=== PATIENT | female | born 1975 | race Caucasian/White ===

== ENCOUNTER 2018-02-22 16:50 | Observation (INO) | payer OTHER ==
[~2018-02-22] VITALS: Ht 160 cm; Wt 94.5 kg
--- NOTE | ~2018-02-22 | EC ---
PATIENT:BHUPENDRA MURPHY DATE OF SERVICE: 02/22/18 SEX: F MEDICAL RECORD: [id number] DATE OF : 71 LOCATION:D. D.212 AGE OF PATIENT: 42 ADMISSION DATE: 02/22/18 REFERRING PHYSICIAN: INTERPRETING PHYSICIAN: RUBI GALLOWAY MD ECHOCARDIOGRAM REPORT ECHO CHARGES 4 ECHO COMPLETE Date: 02/23 CLINICAL DIAGNOSIS: CHEST PAIN ECHOCARDIOGRAPHIC MEASUREMENTS (adult normal given) AC root (d.<3.7cm) 3.3 cm LV Septum d (<1.2 cm> 1.4 cm Valve Excursion 1.7 cm LV Septum (systole) 1.5 cm Left Atria (s.<4.0cm> 3.8 cm LVPW d(<1.2cm) 1.5 cm RV (d.<2.3cm) 2.9 cm LVPW (sytole) 1.8 cm LV diastole(<5.6CM) 3.9 cm MV E-F(>70mm/sec) cm LV systole 2.4 cm LVOT Diameter 2.1 cm MV exc.(>10mm) 1.5 cm Est.ejection fraction (50-75%) % DOPPLER: LVIT cm/sec A 82.0 cm/sec E 67.0 cm/sec LA cm/sec RVSP 24 mmHg LVOT 86 cm/sec AOP1/2T m/s Asc. Ao 147 cm/sec RVOT 105 cm/sec RA cm/sec PA 147 cm/sec AV Gradient Peak 8.60 mmHg AV Mean 3.98 mmHg AV Area 2.1 cm MV Gradient Peak 3.24 mmHg MV Mean 1.41 mmHg MV Area cm COMMENTS: Medical Director/Head Team Physician: 2 ABDI GAY Qa Tech: 4 Dr. Galloway TAPE# PACS Pericardial Effusion N DATE OF SERVICE: PROCEDURE: Transthoracic echocardiogram. FINDINGS: 1. Ejection fraction of the left ventricle is 65%. 2. There is no regional wall motion abnormalities. 3. Left atrium is normal size, normal function. 4. Aortic valve is normal. 5. The mitral valve is normal structure and function. ECHOCARDIOGRAM REPORT [id number] BHUPENDRA MURPHY 6. Tricuspid valve is normal structure and function. RVSP is normal. 7. The right ventricle is normal. 8. The right atrium is normal. 9. The pulmonic valve is normal. 10. There is no pericardial effusion. CONCLUSIONS: In conclusion, this is a normal echocardiogram for the patient's stated age. TRANSINT:[id number] Voice Confirmation ID: [id number] DOCUMENT ID: [id number] RUBI GALLOWAY MD at 0942 CC: [id number] DICTATION DATE: 02/24/18 0713 NEEDLEWORKER: 02/24/18 0833 DIS IN 02/23/18 [address] [place] [address]
--- NOTE | ~2018-02-22 | HEMODYNAMI ---
PATIENT:BHUPENDRA MURPHY MEDICAL RECORD: [id number] : 71 [id number] ADMISSION DATE: 02/22/18 Generatedon:02/23/20189:40 Patient name: BHUPENDRA MURPHY Patient #: [id number] SSN: [id number] : 1975 Date of study: 02/23/2018 Page: Of Hemodynamic Procedure Report Patient Data Patient Demographics Procedure consent was obtained First Name: BHUPENDRA Gender: Female Last Name: KATHERINE : 1975 Patient #: [id number] Age: 42 year(s) Race: SSN: [id number] Additional ID: [id number] Contact details [address]: [address] [place] [address] State: [place] City: [place] Zip code: [address] Past Medical History Allergies Allergen Reaction Date Comments Reported Other allergy 02/23/2018 Codeine Admission Admission Data Admission Date: 02/22/2018 Admission Time: 17:53 Arrival Date: 02/23/2018 Arrival Time: 17:53 Admit Source: Other Insurance Payor: Private Room #: [id number] health insurance Lab Results Lab Result Date: 02/23/2018 Lab Result Time: 0:00 Biochemistry Name Units Result Min Max BUN mg/dl 21 --(----)-* 7 18 Creatinine mg/dl 1.2 --(---*)-- 0.6 1.3 CBC Name Units Result Min Max Hemoglobin g/dl 12.8 -*(----)-- 13.5 17.5 Procedure Procedure Types Cath Procedure Diagnostic Procedure C C w/Coronaries Procedure Description Procedure Date Procedure Date: 02/23/2018 Procedure Start Time: 9:15 Procedure End Time: 9:39 Procedure Staff Name Function Vadim Hays MD Performing Physician Alexa Ruiz RT Monitor Rafal Trejo RN Nurse Mitzy Crowley RT Scrub Procedure Data Cath Procedure Fluoroscopy Diagnostic fluoroscopy Total fluoroscopy Time: 1.2 time: 1.2 min min Diagnostic fluoroscopy Total fluoroscopy dose: 261 dose: 261 mGy mGy Contrast Material Contrast Material Type Amount (ml) Isovue 300 261 Entry Location Entry Primary Successful Side Size Upsize Upsize Entry Closure Succes sful Closure Location (Fr) 1 (Fr) 2 (Fr) Remarks Device Remarks Femoral Right 5 Fr Exoseal artery Estimated blood loss: 5 ml Procedure Complications No complications Procedure Medications Medication Administration Route Dosage 0.9% NaCl I.V. 100 ml/hr Oxygen etCO2 Nasal cannula 2 l/min Heparin Flush Bag added to field 2 bags (1000units/500ml NS) Lidocaine 2% added to field 20 Versed I.V. 2 mg Fentanyl I.V. 50 mcg Versed I.V. 1 mg Hemodynamics Rest HGB: 12.8 (g/dl) Heart Rate: 85 (bpm) Pressure Samples Time Site Value (mmHg) Purpose Heart Use Rate(bpm) 9:34 LV 151/-32,5 EDP 100 9:35 AO 121/77(98) Pullback 111 Gradients Valve Time Site Site 2 Mean SEP/DFP Peak To Heart Use 1 (mmHg) (sec/min) Peak Rate (mmHg) (bpm) Aortic 9:35 LV AO 111 121/77(98) Snapshots Pre Cath Intra NCS Post Cath Vital Signs Time Heart Resp SPO2 etCO2 NIBP (mmHg) Rhythm Pain Sedation Rate (ipm) (%) (mmHg) Status Level (bpm) 9:01:46 88 26 97 0 134/90(109) NSR 0 (11) 10(A) , No pain 9:06:29 98 19 100 13.6 133/88(113) NSR 0 (11) 10(A) , No pain 9:11:13 94 18 100 30.9 130/86(110) NSR 0 (11) 10(A) , No pain 9:16:00 110 17 99 37 130/82(99) NSR 0 (11) 10(A) , No pain 9:20:45 107 19 99 38.5 126/85(97) NSR 0 (11) 10(A) , No pain 9:25:27 99 20 99 27.9 124/85(101) NSR 0 (11) 10(A) , No pain 9:30:10 109 20 100 34.7 131/88(99) NSR 0 (11) 10(A) , No pain 9:34:55 110 18 100 35.5 125/89(104) NSR 0 (11) 10(A) , No pain 9:39:37 86 20 98 33.2 124/89(106) NSR 0 (11) 10(A) , No pain Medications Time Medication Route Dose Verified Delivered Reason Notes Effe ctiveness by by 9:05:48 0.9% NaCl I.V. 100 Rafal Rafal Per ml/hr Lorigan Lorigan physician RN RN 9:06:08 Oxygen etCO2 2 Rafal Rafal Per Nasal l/min Lorigan Lorigan physician cannula RN RN 9:06:20 Heparin Flush added 2 Rafal Rafal used for Bag to bags Lorigan Lorigan procedure (1000units/500ml field RN RN NS) 9:06:34 Lidocaine 2% added 20ml Rafal Rafal for local to vial Lorigan Lorigan anesthetic field RN RN 9:13:20 Versed I.V. 2 mg Rafal Rafal for Lorigan Lorigan sedation RN RN 9:13:30 Fentanyl I.V. 50 Rafal Rafal for mcg Lorigan Lorigan sedation RN RN 9:15:04 Versed I.V. 1 mg Rafal Rafal for Lorigan Lorigan sedation RN applications engineer manufacturing Log Time Note 8:33:36 Diagnostic Cath status Elective 8:33:38 Alexa Ruiz RT(R) sent for patient. Start room use. 8:33:39 Time tracking: Regular hours (M-F 7:00 - 5:00) 8:33:45 Plan of Care:Hemodynamics will remain stable., Cardiac rhythm will remain stable., Comfort level will be maintained., Respiratory function will remain adequate., Patient/ family verbilizes understanding of procedure., Procedure tolerated without complication., Recovers from procedure without complications.. 8:45:36 Informed consent obtained and on chart 8:45:42 Admit Source: Other 8:45:44 Arrival Date: 02/23/2018 5:53:00 PM 8:45:51 Insurance Payor : Private health insurance 8:47:19 Lab Result : Creatinine 1.2 mg/dl 8:47:19 Lab Result : BUN 21 mg/dl 8:47:19 Lab Result : Hemoglobin 12.8 g/dl 8:49:35 Patient received from Med II to CCL 2 Alert and oriented. Tansferred to table in Supine position. 8:49:36 Warm blankets applied, and giselle hugger turned on for patient comfort. 8:49:37 Correct patient and procedure confirmed by team. 8:49:38 ECG and BP/O2 sat monitors applied to patient. 9:00:53 Vital chart was started 9:00:56 Baseline sample Acquired. 9:01:00 Rhythm: sinus rhythm 9:01:02 Full Disclosure recording started 9:01:09 H&P Date Dictated: 02/22/2018 Within 30 days and on chart.. 9:01:11 Pre-procedure instructions explained to patient. 9:01:13 Family in waiting room. 9:01:15 Patient NPO since Midnight. 9:01:30 Patient allergic to Other allergyCodeine 9:01:32 Was the patient premedicated? Yes 9:01:33 Is patient on blood thinner?Yes 9:01:36 ACC The patient was administered the following blood thiners within the last 24 hours: ACCPlavix 9:01:38 Patient diabetic? No. 9:01:42 Snore? Yes 9:01:44 Sleep apnea? No 9:01:48 Dentures? No ? 9:01:53 Patient pain scale 0/10 ?. 9:01:59 IV patent on arrival in left forearm with 0.9% NaCl at O. 9:02:03 Lab results completed and on chart. 9:02:07 Right Radial & Right Groin area was prepped with chlora-prep and draped in sterile fashion 9:02:08 Alarms reviewed by R. N. 9:02:09 Sharps counted by scrub and verified by R.N. 9:02:11 Physician paged 9:05:48 0.9% NaCl 100 ml/hr I.V. was administered by Rafal Trejo RN; Per physician; 9:06:08 Oxygen 2 l/min etCO2 Nasal cannula was administered by Rafal Trejo RN; Per physician; 9:06:20 Heparin Flush Bag (1000units/500ml NS) 2 bags added to field was administered by Rafal Trejo RN; used for procedure; 9:06:34 Lidocaine 2% 20ml vial added to field was administered by Rafal Trejo RN; for local anesthetic; 9:07:27 Final Timeout: patient, procedure, and site verified with staff and physician. All members of the team are in agreement. 9:07:28 --------ALL STOP TIME OUT------ 9:07:33 Right Radial & Right Groin site verified by team. 9:08:00 Physical assessment completed. ASA score P 2 - A patient with mild systemic disease as per Vadim Hays MD. 9:08:06 Sedation plan: IV Moderate Sedation Medication:Versed, Fentanyl 9:08:32 Use device set Radial Dx or PCI 9:08:33 ACIST Syringe (51045) opened to sterile field. 9:08:33 Medline Cath Pack ([id number]) opened to sterile field. 9:08:34 Bag Decanter (2002S) opened to sterile field. 9:08:34 DIAGNOSTIC WIRE .035 260cm J wire (680472) opened to sterile field. 9:08:35 ACIST Hand Control (72557) opened to sterile field. 9:08:35 ACIST Manifold (74542) opened to sterile field. 9:08:36 Tegaderm 4 x 4 (1626W) opened to sterile field. 9:08:37 MBrace Wrist Support ([id number]) opened to sterile field. 9:08:38 SHEATH 6Fr Prelude Radial ([id number]) opened to sterile field. 9:11:01 Zero performed for pressure channel P1 9:13:20 Versed 2 mg I.V. was administered by Rafal Trejo RN; for sedation; 9:13:30 Fentanyl 50 mcg I.V. was administered by Rafal Trejo RN; for sedation; 9:15:04 Versed 1 mg I.V. was administered by Rafal Trejo RN; for sedation; 9:15:57 Local anesthetic to right radial artery with Lidocaine 2% by Vadim Hays MD.INITIAL ACCESS ONLY 9:24:24 unable to gain radial access; attempting femoral access 9:24:34 Local anesthetic to right femoral artery with Lidocaine 2% by Vadim Hays MD.ADDITIONAL ACCESS 9:24:53 SHEATH 5Fr Prelude ([id number]) opened to sterile field. 9:24:54 MICROPUNCTURE 4FR Cuponomia (R23681) opened to sterile field. 9:25:55 Access obtained with 4Fr micropunture. 9:26:00 A 5 Fr sheath was inserted into the Right Femoral artery 9:26:31 DIAGNOSTIC Multipack 5Fr catheter set (GX8618) opened to sterile field. 9:27:14 5 Fr jl 4 guide catheter was inserted over the wire 9:30:35 LCA angiography performed. 9:30:37 Injector settings: Ml/sec: 3, Volume: 6, 9:31:17 Catheter removed. 9:31:30 5 Fr 3drc guide catheter was inserted over the wire 9:32:48 RCA angiography performed. 9:32:51 Injector settings: Ml/sec: 3, Volume: 6, 9:33:03 Catheter removed. 9:33:12 5 Fr pigtail guide catheter was inserted over the wire 9:34:54 LV hemodynamics recorded. 9:34:56 LV gram done using NOEL 9:34:59 Injector settings: Ml/sec: 8, Volume: 12, 9:35:25 EF : 60 % 9:35:27 Catheter removed. 9:35:43 EXOSEAL 5Fr (EX500) opened to sterile field. 9:36:01 Sheath removed intact; hemostasis achieved with Exoseal to the Right Femoral artery. 9:36:04 Procedure ended.(Physican Out) 9:37:02 Fluoroscopy time 01.20 minutes. 9:37:33 Fluoroscopy dose: 261 mGy 9:37:33 Flurop Dose total: 261 9:37:41 Contrast amount:Isovue 300 261ml. 9:37:43 Sharps counted by scrub and verified by R.N. 9:37:46 Insertion/operative site no bleeding no hematoma. 9:38:17 Post-op/insertion site Right Femoral artery dressed using a 4 x 4 and Tegaderm. 9:38:21 Post right femoral artery:stable 9:38:38 Post Procedure Pulses reassessed and unchanged 9:38:41 Post procedure rhythm: unchanged. 9:38:44 Estimated blood loss: 5 ml 9:38:45 Post procedure instruction explained to patient.Patient verbalizes understanding. 9:38:46 Patient needs reinforcement of post procedure teaching. 9:38:56 Procedure and supply charges have been captured, reviewed, submitted and are correct. 9:39:01 Procedure Complication : No complications 9:39:03 Vital chart was stopped 9:39:05 See physician's report for complete and final results. 9:39:13 Report given to Med II. 9:39:16 Patient transfered to Med II with Stretcher. 9:39:18 Procedure ended. 9:39:18 Full Disclosure recording stopped 9:39:22 End room use (Document Last) Device Usage Item Name Manufacture Quantity Catalog Number Hospital Part Current M inimal Lot# / Charge Number Stock Stock Serial# Code ACIST Syringe Acist 1 89864 543090 002106 862218 2 0 (44263) [employer] Medline Cath Cardinal 1 [id number] 930673 22155 018681 5 Pack Health ([id number]) Bag Decanter Microtek 1 2001S 971353 12352 708566 5 (2001S) Medical Inc. DIAGNOSTIC WIRE [facility] 1 546972 057615 668767 463448 3 0 .035 260cm J wire (268909) ACIST Hand Acist 1 53120 766019 716196 192624 5 Control (80362) [employer] Inc ACIST Manifold Acist 1 87996 232467 356354 811697 5 (81483) Medical Systems Inc Tegaderm 4 x 4 3M 1 1626W 785630 743770 854558 5 (1626W) MBrace Wrist Advanced 1 140-0250-00 088639 18004 849088 5 Support Vascular ([id number]) Dynamics SHEATH 6Fr Merit 1 [id number] 108064 808027 239445 5 Prelude Radial Medical ([id number]) SHEATH 5Fr Merit 1 [id number] 208578 929823 921845 5 Prelude Medical ([id number]) MICROPUNCTURE Cook Medical 1 H07587 978956 809019 215106 5 4FR Cook (Y47995) DIAGNOSTIC Cardinal 1 MS2535 754370 36594 350783 3 0 Multipack 5Fr Health catheter set (XY8932) EXOSEAL 5Fr Cardinal 1 EX500 481836 342877 631349 1 0 (EX500) Health Signature Audit [place] Stage Time Signature Unsigned Intra-Procedure 02/23/2018 Alexa Ruiz 9:40:01 AM RT(R) Signatures Monitor : Alexa Ruiz RT Signature : Date : Time : [address] [place] [address]
[2018-02-22 17:18] LABS: BASOPHILS 0.3 % (0-2); EOSINOPHILS 1.7 % (0-7); HEMATOCRIT 37.7 % (36.0-48.0); HEMOGLOBIN 12.8 g/dL (12-16); IMMATURE GRANULOCYTES 0.3 % (0-5); LYMPHOCYTES 32.4 % (15-50); MCV 85.5 fL (80.0-100.0); MEAN PLATELET VOLUME 10.3 fL (7.4-10.4); MONOCYTES 7.5 % (2-11); NEUTROPHILS 57.8 % (40-80); PLATELET COUNT 402 10x3/uL (130-400); RBC 4.41 10x6/uL (4.00-5.40); RDW 12.7 % (11.5-14.5); WBC 11.6 10x3/uL (4.8-10.8)
[2018-02-22 17:34] LABS: ALBUMIN 3.4 g/dL (3.4-5.0); ALKALINE PHOSPHATASE 43 U/L (46-116); ALT (SGPT) 20 U/L (10-68); BILIRUBIN - TOTAL 0.36 mg/dL (0.2-1.3); CALC OSMOLALITY 281 mosm/kg (275-300); CARBON DIOXIDE 28.6 mmol/L (21.0-32.0); CHLORIDE - SERUM 102 mmol/L (98-107); CREATINE KINASE 90 UL (21-215); CREATININE - SERUM 1.2 mg/dL (0.6-1.3); GLUCOSE 98 mg/dL (74-106); PROTEIN - SERUM 7.5 g/dL (6.4-8.2); SODIUM 140 mmol/L (136-145); UREA NITROGEN 21 mg/dL (7-18); eGFR NON AFRICAN AMERICAN 52 mL/min (90-120)
[2018-02-22 17:39] LABS: POTASSIUM - SERUM 2.8 mmol/L (3.5-5.1); TROPONIN-I < 0.017 ng/mL (0.000-0.060)
[2018-02-22] MEDS ORDERED: CHLORTHALIDONE50 MG PO (20:03)
[2018-02-22] MEDS ORDERED: AMBIEN10 MG PO (20:03)
[2018-02-22] MEDS ORDERED: ATIVAN1 MG PO (20:04)
[2018-02-22] MEDS ORDERED: WELLBUTRIN SR150 MG PO (20:04)
[2018-02-22] MEDS ORDERED: MOBIC7.5 MG PO (20:05)
[2018-02-22 22:58] VITALS: BP 124/78; Ht 160 cm; Wt 94.5 kg
[2018-02-22 23:47] LABS: CKMB 0.4 U/L (0.0-3.6); CREATINE KINASE 69 UL (21-215)
[2018-02-22 23:50] LABS: TROPONIN-I < 0.017 ng/mL (0.000-0.060)
[2018-02-23 02:30] VITALS: BP 106/67
[2018-02-23 04:04] LABS: CKMB 0.4 U/L (0.0-3.6); CREATINE KINASE 61 UL (21-215)
[2018-02-23 04:07] LABS: TROPONIN-I < 0.017 ng/mL (0.000-0.060)
[2018-02-23 05:00] VITALS: BP 114/63
[2018-02-23 08:38] LABS: BASOPHILS 0.3 % (0-2); EOSINOPHILS 1.6 % (0-7); HEMATOCRIT 34.7 % (36.0-48.0); HEMOGLOBIN 11.4 g/dL (12-16); IMMATURE GRANULOCYTES 0.3 % (0-5); LYMPHOCYTES 26.3 % (15-50); MCH 28.6 pg (26.0-34.0); MCHC 32.9 g/dL (31.0-37.0); MEAN PLATELET VOLUME 10.1 fL (7.4-10.4); MONOCYTES 6.7 % (2-11); NEUTROPHILS 64.8 % (40-80); PLATELET COUNT 356 10x3/uL (130-400); RBC 3.99 10x6/uL (4.00-5.40); WBC 10.4 10x3/uL (4.8-10.8)
[2018-02-23 08:55] LABS: CALC OSMOLALITY 280 mosm/kg (275-300); CALCIUM 8.5 mg/dL (8.5-10.1); CARBON DIOXIDE 28.3 mmol/L (21.0-32.0); CHLORIDE - SERUM 103 mmol/L (98-107); CKMB 0.4 U/L (0.0-3.6); CREATINE KINASE 57 UL (21-215); CREATININE - SERUM 0.8 mg/dL (0.6-1.3); GLUCOSE 88 mg/dL (74-106); POTASSIUM - SERUM 3.3 mmol/L (3.5-5.1); SODIUM 140 mmol/L (136-145); TROPONIN-I < 0.017 ng/mL (0.000-0.060); UREA NITROGEN 22 mg/dL (7-18); eGFR NON AFRICAN AMERICAN 82 mL/min (90-120)
[2018-02-23 09:07] VITALS: BP 98/65
== END 2018-02-23 15:42 | disposition home or self-care (01) ==
LOC: D.ER 16:50 → D.EDHOLD 17:53 → OBSVTIME 17:54 → D.M2 18:13
PROVIDERS: Emergency Medicine; Internal Medicine Cardiovascular Disease
DX: R07.89 Other chest pain (principal); I10 Essential (primary) hypertension; F41.9 Anxiety disorder, unspecified

== ENCOUNTER 2019-05-04 15:31 | Emergency (ER) | payer MEDICAID ==
[~2019-05-04] VITALS: Ht 160 cm; Wt 105.0 kg
[~2019-05-04 15:31] MED LIST: AMBIEN10 MG PO; ATIVAN1 MG PO; CHLORTHALIDONE50 MG PO; MOBIC7.5 MG PO; WELLBUTRIN SR150 MG PO
[2019-05-04 15:36] VITALS: Ht 160 cm; Wt 105.0 kg
[2019-05-04] MEDS ORDERED: K-DUR20 MEQ PO (15:41)
[2019-05-04] MEDS ORDERED: NORVASC5 MG PO (15:41)
[2019-05-04] MEDS ORDERED: PROZAC20 MG PO (15:42)
[2019-05-04 16:22] LABS: BASOPHILS 0.3 % (0-2); HEMATOCRIT 37.1 % (36.0-48.0); HEMOGLOBIN 12.3 g/dL (12-16); IMMATURE GRANULOCYTES 0.3 % (0-5); LYMPHOCYTES 28.6 % (15-50); MCHC 33.2 g/dL (31.0-37.0); MCV 84.3 fL (80.0-100.0); MEAN PLATELET VOLUME 9.9 fL (7.4-10.4); MONOCYTES 5.9 % (2-11); NEUTROPHILS 62.9 % (40-80); PLATELET COUNT 386 10x3/uL (130-400); RDW 13.4 % (11.5-14.5)
[2019-05-04 16:40] LABS: ALBUMIN 3.5 g/dL (3.4-5.0); ALKALINE PHOSPHATASE 55 U/L (46-116); ALT (SGPT) 26 U/L (10-68); BILIRUBIN - TOTAL 0.44 mg/dL (0.2-1.3); CALC OSMOLALITY 284 mosm/kg (275-300); CALCIUM 8.8 mg/dL (8.5-10.1); CARBON DIOXIDE 25.6 mmol/L (21.0-32.0); CHLORIDE - SERUM 107 mmol/L (98-107); CREATININE - SERUM 0.8 mg/dL (0.6-1.3); GLUCOSE 101 mg/dL (74-106); PROTEIN - SERUM 7.3 g/dL (6.4-8.2); SODIUM 143 mmol/L (136-145); UREA NITROGEN 12 mg/dL (7-18); eGFR NON AFRICAN AMERICAN 82 mL/min (90-120)
[2019-05-04 16:48] LABS: POTASSIUM - SERUM 2.9 mmol/L (3.5-5.1)
[2019-05-04 17:00] LABS: CKMB 1.2 U/L (0.0-3.6); CREATINE KINASE 108 UL (21-215); MAGNESIUM - SERUM 1.8 mg/dL (1.8-2.4)
[2019-05-04] MEDS ORDERED: ZOFRAN4 MG PO (19:42)
[2019-05-04 19:59] VITALS: BP 128/74
== END 2019-05-04 19:55 | disposition home or self-care (01) ==
LOC: D.ER 15:31
PROVIDERS: Family Medicine
DX: E87.6 Hypokalemia (principal); M62.838 Other muscle spasm; R11.2 Nausea with vomiting, unspecified

== ENCOUNTER → 2019-05-28 13:40 | Outpatient (CLI) | payer MEDICAID ==
[2019-05-04 15:36] VITALS: BMI 41.0
[~2019-05-28 13:40] MED LIST changes: +K-DUR20 MEQ PO; +NORVASC5 MG PO; +PROZAC20 MG PO; +ZOFRAN4 MG PO
== END | disposition home or self-care (01) ==
LOC: D.US 05-25 13:00
PROVIDERS: ATTEND Internal Medicine Cardiovascular Disease
DX: M79.605 Pain in left leg (principal)

== ENCOUNTER → 2019-06-18 10:17 | Outpatient (CLI) | payer MEDICAID ==
[2019-05-04 15:36] VITALS: BMI 41.0
[~2019-06-18 10:17] MED LIST changes: +ALBUTEROL SULF8.5 GM INH; +FLOVENT HFA 22012 GM INH; +OMEPRAZOLE20 M1 PO; +PEPCID40 MG PO; +ROBAXIN500 MG PO; +ULTRAM50 MG PO
== END | disposition home or self-care (01) ==
LOC: D.US 06-11 10:30
PROVIDERS: ATTEND Family Medicine
DX: R10.9 Unspecified abdominal pain (principal); R60.0 Localized edema

== ENCOUNTER → 2019-06-26 10:43 | Outpatient (CLI) | payer OTHER ==
[2019-05-04 15:36] VITALS: BMI 41.0
== END | disposition home or self-care (01) ==
LOC: D.NM 06-23 09:00 → D.US 06-23 09:00 → D.NM 06-23 09:30 → D.US 06-24 08:30 → D.NM 06-24 09:00
PROVIDERS: ATTEND Internal Medicine Gastroenterology
DX: R10.11 Right upper quadrant pain (principal); R10.13 Epigastric pain; R11.2 Nausea with vomiting, unspecified

== ENCOUNTER 2019-07-14 05:23 | Day surgery (SDC) | payer MEDICAID ==
[~2019-07-14] VITALS: Ht 160 cm; Wt 109.8 kg
[~2019-07-14 05:23] MED LIST changes: -ULTRAM50 MG PO
[2019-07-14 06:34] LABS: CALCIUM 9.3 mg/dL (8.5-10.1); CARBON DIOXIDE 27.7 mmol/L (21.0-32.0); CREATININE - SERUM 0.9 mg/dL (0.6-1.3); POTASSIUM - SERUM 3.7 mmol/L (3.5-5.1)
[2019-07-14 06:38] VITALS: BP 146/83; Ht 160 cm; Wt 109.8 kg
--- NOTE | 2019-07-14 07:00 | NUR ---
DR RENO NOTIFIED AND REVIEWED PT'S BEHAVIOR AND ASSESSMENT RESULTS. PT IS A LOW RISK PER DR RENO. DR RENO STATED TO GIVE RESOURCES TO PT AT TIME OF DISCHARGE. NO FURTHER ORDERS AT THIS TIME. RESOURCES REVIEWED WITH PT AND SHE VERBALIZED UNDERSTANDING.
[2019-07-14 07:06] LABS: BASOPHILS 0.4 % (0-2); EOSINOPHILS 1.6 % (0-7); HEMATOCRIT 38.8 % (36.0-48.0); HEMOGLOBIN 13.3 g/dL (12-16); IMMATURE GRANULOCYTES 0.3 % (0-5); LYMPHOCYTES 39.3 % (15-50); MCH 27.7 pg (26.0-34.0); MCHC 34.3 g/dL (31.0-37.0); MCV 80.7 fL (80.0-100.0); MEAN PLATELET VOLUME 10.5 fL (7.4-10.4); MONOCYTES 6.9 % (2-11); NEUTROPHILS 51.5 % (40-80); PLATELET COUNT 444 10x3/uL (130-400); RBC 4.81 10x6/uL (4.00-5.40); RDW 12.8 % (11.5-14.5); WBC 7.7 10x3/uL (4.8-10.8)
[2019-07-14] MEDS ORDERED: ULTRAM50 MG PO (08:38)
--- NOTE | 2019-07-14 09:49 | NUR ---
0990 FAMILY RETURNED TO ROOM, CRITERIA FOR RELEASE GIVEN.
--- NOTE | 2019-07-14 10:07 | OP ---
PATIENT NAME: BHUPENDRA WHITAKER MEDICAL RECORD: [id number] :71 [facility] AD[facility]ION DATE: SURGEON: PAUL DICKSON MD DATE OF OPERATION: 07/14/2019 PREOPERATIVE DIAGNOSES: 1. Biliary dyskinesia. 2. Left 3 cm posterior calf mass. 3. Hypertension. 4. Morbid obesity with a BMI of 43. POSTOPERATIVE DIAGNOSES: 1. Biliary dyskinesia. 2. Left 3 cm posterior calf mass. 3. Hypertension. 4. Morbid obesity with a BMI of 43. PROCEDURE: 1. Laparoscopic cholecystectomy. 2. Excision of 3 cm soft tissue left posterior calf mass. SURGEON: Paul Dickson MD REPORT OF PROCEDURE: The patient's abdomen was prepped and draped in sterile fashion. A cutdown was made on the superior aspect of the umbilicus, 0 Vicryls were placed in the fascia bilaterally and the fascia was incised with a 15-blade. I then bluntly entered the peritoneal cavity and placed a 12-mm Martin port. Under direct visualization, a 5 mm trocar was placed in the epigastrium and 2 more 5-mm trocars were placed in the right subcostal region. The gallbladder was elevated. There was no sign of any inflammatory changes. The cystic artery and cystic duct were dissected free and these were clipped proximally and distally and ligated in standard fashion. The gallbladder was taken off the liver bed and placed into an Endo Catch bag. We irrigated out the right upper quadrant and any bleeding was treated with electrocautery. At this point, the ports and insufflation were then removed and the gallbladder was taken out through the umbilicus. The umbilical fascia was closed with interrupted 0 Vicryls times 3. The wounds were then irrigated out with normal saline and infused with 10 mL of 0.25% Marcaine with epinephrine. The skin incisions were closed with subcutaneous 5-0 Monocryl and dressed appropriately. We then prepped the posterior aspect of the left medial calf, there was a 3-cm mass present in the subcutaneous tissues. The 3 cm incision was made overlying this mass. As we came down, there was not a distinct lipomatous lesion present, but there was lot of firm fatty tissue consistent with more of a pedunculated lipoma. The tissue was squeezed out and any of this firm fatty tissue was removed. At the conclusion of the case, this mass appeared to be resolved and the skin was flat. We inspected the base of the area and did not see any evidence of any deeper masses or lesions present. At this point, we irrigated out the wound with normal saline. The subcutaneous tissues were reapproximated with interrupted 3-0 Vicryl and the skin was closed with a running simple 5-0 Monocryl. COMPLICATIONS: None. CONDITION: Stable. OPERATIVE REPORT [id number] BHUPENDRA WHITAKER ANESTHESIA: General endotracheal and local. BLOOD LOSS: Minimal. TRANSINT:[id number] Voice Confirmation ID: [id number] DOCUMENT ID: [id number] PAUL DICKSON MD at 1007 CC: HERB GILMAN JR, MD [id number] DICTATION DATE: 07/14/19841 [employer] SUPERINTENDENT: 07/14/19925 [facility] [address] [place] [address]
== END 2019-07-14 13:50 | disposition home or self-care (01) ==
LOC: D.OPS 05:23
PROVIDERS: ATTEND Surgery
DX: K81.1 Chronic cholecystitis (principal); D17.24 Benign lipomatous neoplasm of skin and subcutaneous tissue of left leg; I10 Essential (primary) hypertension; E66.01 Morbid (severe) obesity due to excess calories; Z68.41 Body mass index [BMI] 40.0-44.9, adult; Z01.812 Encounter for preprocedural laboratory examination

== ENCOUNTER → 2019-10-13 09:27 | Outpatient (CLI) | payer MEDICAID ==
[2019-07-14 06:38] VITALS: BMI 42.9
[~2019-10-13 09:27] MED LIST changes: +ULTRAM50 MG PO
--- NOTE | 2019-10-15 15:25 | ST ---
PATIENT:BHUPENDRA WHITAKER MEDICAL RECORD: [id number] SEX: F LOCATION:[facility] ORDER #: ADMISSION DATE: 10/13/19 AGE OF PATIENT: 43 REFERRING PHYSICIAN: INTERPRETING PHYSICIAN: JAYLIN VARNER MD DATE OF SERVICE: 10/13/2019 PROCEDURE: Nuclear Stress Test. INDICATION: Angina, palpitations and hypertension. She was exercised on standard Lexiscan protocol with 27 mCi of sestamibi injected at peak stress, 9 mCi used previously for rest images. FINDINGS: Gated SPECT reveals preserved ejection fraction at 66% with good wall motion and thickening and brightening throughout all segments. SPECT imaging Cardiolite was used as myocardial fusion agent. There is homogeneous uptake throughout all segments at rest and stress with no evidence of inducible ischemia or previous infarction. OVERALL IMPRESSION: 1. This is a normal nuclear stress test with no evidence of inducible ischemia or previous infarction. 2. Gated SPECT reveals a preserved ejection fraction at 66%. In this patient with ongoing symptomatology, the current scan does not suggest the presence of hemodynamically significant coronary artery disease. Evaluate noncardiac etiology of chest pain. TRANSINT:[id number] Voice Confirmation ID: [id number] DOCUMENT ID: [id number] JAYLIN VARNER MD at 1525 CC: HERB GILMAN JR, MD [id number] DICTATION DATE: 10/13/19 1624 SPECIAL POPULATION PARAPROFESSIONAL: 10/14/19 0738 [facility] CLI 10/13/19 [facility] [address] [place] [address]
== END | disposition home or self-care (01) ==
LOC: D.HCCARDIO 09:27
PROVIDERS: ATTEND Internal Medicine Interventional Cardiology
DX: R07.9 Chest pain, unspecified (principal)

== ENCOUNTER → 2020-02-15 09:52 | Outpatient (CLI) | payer MEDICAID ==
[2019-07-14 06:38] VITALS: BMI 42.9
== END | disposition home or self-care (01) ==
LOC: D.HCCECHO 02-10 11:30
PROVIDERS: ATTEND Internal Medicine Cardiovascular Disease
DX: R00.2 Palpitations (principal)

== ENCOUNTER → 2020-03-10 09:35 | Outpatient (CLI) | payer MEDICAID ==
[2019-07-14 06:38] VITALS: BMI 42.9
[2020-03-10 10:37] LABS: ALBUMIN 3.5 g/dL (3.4-5.0); BILIRUBIN - DIRECT 0.07 mg/dL (0.00-0.30); BILIRUBIN - INDIRECT 0.38 mg/dL (0.00-1.00); BILIRUBIN - TOTAL 0.45 mg/dL (0.2-1.3); PROTEIN - SERUM 7.5 g/dL (6.4-8.2)
== END | disposition home or self-care (01) ==
LOC: D.LAB 09:35 → D.US 10:00
PROVIDERS: ATTEND Internal Medicine Gastroenterology
DX: K76.0 Fatty (change of) liver, not elsewhere classified (principal)

== ENCOUNTER 2021-03-22 06:02 | Day surgery (SDC) | payer MEDICAID ==
[~2021-03-22] VITALS: Ht 160 cm; Wt 106.6 kg
[~2021-03-22 06:02] MED LIST changes: +BUPROPION HCL100 M1 PO; +ESTRACE1 MG PO; +HYDROCODONE-AC1 EAC2 PO; +NEURONTIN600 MG PO; +PREDNISONE5 MG PO; +SPIRIVA18 MCG INH; -WELLBUTRIN SR150 MG PO
[2021-03-22 06:30] LABS: EOSINOPHILS 4.1 % (0-7); HEMATOCRIT 38.3 % (36.0-48.0); HEMOGLOBIN 12.7 g/dL (12-16); LYMPHOCYTES 31.1 % (15-50); MCH 27.8 pg (26.0-34.0); MCHC 33.2 g/dL (31.0-37.0); MCV 83.8 fL (80.0-100.0); MEAN PLATELET VOLUME 7.9 fL (7.4-10.4); MONOCYTES 7.7 % (2-11); NEUTROPHILS 56.1 % (40-80); PLATELET COUNT 398 10x3/uL (130-400); RBC 4.56 10x6/uL (4.00-5.40); RDW 13.3 % (11.5-14.5); WBC 9.1 10x3/uL (4.8-10.8)
[2021-03-22 06:48] LABS: HCG SERUM NEGATIVE (NEGATIVE)
[2021-03-22 06:50] LABS: ANION GAP 14.4 mmol/L (8-16); CARBON DIOXIDE 27.4 mmol/L (21.0-32.0); CREATININE - SERUM 0.9 mg/dL (0.6-1.3); POTASSIUM - SERUM 3.8 mmol/L (3.5-5.1)
[2021-03-22 07:08] VITALS: BP 157/106; Ht 160 cm; Wt 106.6 kg
--- NOTE | 2021-03-22 09:25 | NUR ---
[employer] PNE LEAD #1901 LOT #[id number] EXP. DATE: 10/10/2022 [employer] PNE LEAD IMPLANT KIT #1701 LOT #[id number] EXP. DATE: 10/27/21
--- NOTE | 2021-03-22 15:36 | NUR ---
1154 [facility] DC'D. PT KEEPING OXYGEN SATURATION AT 96-97% ON ROOM AIR.
--- NOTE | 2021-03-22 15:37 | NUR ---
1202 PT MEDICATED FOR RIGHT UPPER THIGH PAIN. SUTURE SITE CDI WITH DERMABOND. AREA AROUND INCISION IS SWOLLEN AND BRUISED BUT TISSUE IS SOFT. PT RATES HER PAIN A 6 OUT OF 10. 1224 PT STATES HER PAIN HAS DROPPED TO A 2 OUT OF 10. 1335 PT WAS ABLE TO VOID WITHOUT DIFFICULTY ON THIS ATTEMPT. 1342 IV DC'D. CATHETER TIP INTACT. NO BLEEDING AT SITE. COBAN DRESSING APPLIED. DISCHARGE INSTRUCTIONS REVIEWED WITH PT WHO VOICES UNDERSTANDING OF THESE INSTRUCTIONS.
== END 2021-03-22 13:56 | disposition home or self-care (01) ==
LOC: D.OPS 06:02
PROVIDERS: Anesthesiology; ATTEND Obstetrics & Gynecology Maternal & Fetal Medicine
DX: D17.1 Benign lipomatous neoplasm of skin and subcutaneous tissue of trunk (principal); R33.9 Retention of urine, unspecified; I10 Essential (primary) hypertension; K21.9 Gastro-esophageal reflux disease without esophagitis; K76.0 Fatty (change of) liver, not elsewhere classified; R39.15 Urgency of urination